=== PATIENT | male | born 2000 | race Caucasian/White ===

== ENCOUNTER 2023-02-20 14:08 | Emergency (ER) | payer OTHER ==
[~2023-02-20] VITALS: Ht 172.7 cm; Wt 72.6 kg
[2023-02-20 14:49] VITALS: BP_SYST 118; PULSE 61; RESP 18; TEMP 98.2; O2SAT 99
[2023-02-20] MEDS ORDERED: KETOROLAC TROMETHAMINE 30 MG VIAL IM ONE (17:15)
[2023-02-20] MEDS ORDERED: METOCLOPRAMIDE HCL 10 MG TABLET PO ONE (17:15)
[2023-02-20] MEDS ORDERED: NAPR-690 PO (19:23)
[2023-02-20] MEDS ORDERED: ONDA-8 TL (19:23)
[2023-02-20 19:31] VITALS: BP_SYST 118; PULSE 61; RESP 18; TEMP 98.2; O2SAT 99
== END 2023-02-20 19:31 | disposition home or self-care (01) ==
LOC: SED 14:08
DX: S06.0X0A Concussion without loss of consciousness, initial encounter (principal); M79.10 Myalgia, unspecified site; J45.909 Unspecified asthma, uncomplicated; Z88.1 Allergy status to other antibiotic agents; Z79.899 Other long term (current) drug therapy; V00.311A Fall from snowboard, initial encounter; Y93.23 Activity, snow (alpine) (downhill) skiing, snowboarding, sledding, tobogganing and snow tubing; Y92.89 Other specified places as the place of occurrence of the external cause; Y99.8 Other external cause status
CPT/HCPCS: 99285; 70450; 73564; 73610; 72125; 76376; 96372; J8597; J1885